=== PATIENT | male | born 1935 ===

== ENCOUNTER 2016-09-04 19:11 | Observation (INO) | payer MEDICARE, OTHER ==
[~2016-09-04 19:11] MED LIST: ASPIR 8181 M1 PO; ELIQUIS5 M1 PO; ENALAPRIL MALEA20 M1 PO; HUMALOG100 UNITS/ SC; HYDROCHLOROTH12.5 M3 PO; LANTUS100 UNITS/ SC; MULTIVITAMINS1 EAC6 PO; PRAVASTATIN SOD40 M1 PO; SOTALOL80 M1 PO; TOPROL XL100 M1 PO
[2016-09-04] MEDS ORDERED: VIBRAMYCIN100 M1 PO (19:55)
[2016-09-04] MEDS ORDERED: COZAAR100 M1 PO (19:59)
[2016-09-04] MEDS ORDERED: HYDROCHLOROTH12.5 M2 PO (20:03)
[2016-09-04 20:44] LABS: BASO % 0.7 % (0-2); EOS % 2.1 % (0-7); EOSINOPHIL ABSOLUTE COUNT 0.1 tho/cmm (0.0-0.7); HCT-HEMATOCRIT 44.9 % (36.0-53.5); HGB-HEMOGLOBIN 15.1 gm/dl (13.5-17.0); IMMATURE GRANULOCYTES ABSOLUTE 0.01 tho/cmm (0-0.03); IMMATURE GRANULOCYTES PERCENT 0.2 % (0-0.3); MCH (MEAN CORPUSCULAR HGB) 32.1 pg (28.0-32.0); MCHC MEAN CORPUSCULAR HGB CONC 33.6 % (32.0-36.0); MCV (MEAN CELL VOLUME) 95.5 fl (82.0-96.0); MEAN PLATELET VOLUME 11.4 cmc (9.4-12.4); MONO % 19.5 % (0-12); MONOCYTE ABSOLUTE COUNT 1.2 tho/cmm (0.0-1.2); NEUTROPHIL ABSOLUTE COUNT 2.7 tho/cmm (1.6-8.0); NEUTROPHIL-AUTOMATED 2.7 tho/cmm (1.6-8.0); NEUTROPHILS % 44.5 % (40-80); PLATELET COUNT 151 tho/cmm (150-450); RED CELL DISTRIBUTION WIDTH 12.6 % (12.4-16.4); WHITE BLOOD COUNT 6.1 tho/cmm (4.0-10.0)
[2016-09-04 21:01] LABS: ANION GAP 11 mmol/L (0-20); BLOOD UREA NITROGEN 22 mg/dl (6-24); CALCIUM 8.5 mg/dl (8.5-10.5); CARBON DIOXIDE-VENOUS 33 mmol/L (22-32); CHLORIDE 101 mmol/l (96-110); CREATININE 1.61 mg/dl (0.60-1.30); GLUCOSE 267 mg/dL (70-110); POTASSIUM 4.9 mmol/L (3.7-5.1); SODIUM 140 mmol/L (135-145); eGFR VALUE FOR BLACK 46 mL/Min
[2016-09-04 21:14] LABS: INR 1.3 INR (0.9-1.1); PROTHROMBIN TIME 14.8 SECONDS (9.0-13.6)
[2016-09-05] MEDS ORDERED: ISOSORBIDE MONO30 M4 PO (12:37)
== END 2016-09-05 14:15 ==
LOC: EDMED 19:11 → EMR2 21:30 → 5WE 23:34
PROVIDERS: Emergency Medicine; Nurse Practitioner Family; ADMIT Internal Medicine Cardiovascular Disease
DX: R06.00 Dyspnea, unspecified (principal); R79.89 Other specified abnormal findings of blood chemistry; I25.10 Atherosclerotic heart disease of native coronary artery without angina pectoris; E11.9 Type 2 diabetes mellitus without complications; I12.9 Hypertensive chronic kidney disease with stage 1 through stage 4 chronic kidney disease, or unspecified chronic kidney disease; N18.3 Chronic kidney disease, stage 3 (moderate); E11.22 Type 2 diabetes mellitus with diabetic chronic kidney disease; E78.5 Hyperlipidemia, unspecified; Z79.01 Long term (current) use of anticoagulants; Z79.4 Long term (current) use of insulin; Z79.82 Long term (current) use of aspirin; Z79.899 Other long term (current) drug therapy; Z88.1 Allergy status to other antibiotic agents; Z88.8 Allergy status to other drugs, medicaments and biological substances; Z95.0 Presence of cardiac pacemaker; Z90.49 Acquired absence of other specified parts of digestive tract; Z98.41 Cataract extraction status, right eye; Z98.42 Cataract extraction status, left eye; Z98.890 Other specified postprocedural states
CPT/HCPCS: A9500; C8929; G0378; J1815; J2785